=== PATIENT | male | born 2000 | race Two or more races ===

== ENCOUNTER 2025-04-28 16:43 | Emergency (ER) | payer SELFPAY ==
[~2025-04-28] VITALS: Ht 172.7 cm; Wt 70.3 kg
[2025-04-28 16:48] VITALS: TEMP 98.1
[2025-04-28] MEDS ORDERED: ONDANSETRON HCL/PF 4 MG/2 ML VIAL ONE (17:24)
[2025-04-28] MEDS ORDERED: MORPHINE SULFATE INJ 4 MG/ML DISP.SYRIN ONE (17:25)
[2025-04-28] MEDS: ONDANSETRON HCL/PF 4 MG/2 ML VIAL IV ONE (17:28)
[2025-04-28] MEDS: MORPHINE SULFATE INJ 10 MG/ML DISP.SYRIN IV ONE (17:29)
[2025-04-28 18:16] VITALS: BP 125/70; O2SAT 98
== END 2025-04-28 18:15 | disposition home or self-care (01) ==
LOC: ER 17:05
DX: S43.101A Unspecified dislocation of right acromioclavicular joint, initial encounter (principal); W19.XXXA Unspecified fall, initial encounter; Y93.89 Activity, other specified; Y92.89 Other specified places as the place of occurrence of the external cause; Y99.8 Other external cause status
CPT/HCPCS: 99284; 96374; 96375; 73030; J2270 ×2; J2405